=== PATIENT | female | born 1945 | race Caucasian/White ===

== ENCOUNTER 2017-11-27 09:19 | Outpatient (CLI) | payer OTHER ==
[~2017-11-27 09:19] MED LIST: ANASTROZOLE1 GM; MICARDIS80 MG
== END 2017-11-27 10:12 | disposition home or self-care (01) ==
LOC: SONOGRAMA 09:19
DX: R10.84 Generalized abdominal pain (principal); N95.1 Menopausal and female climacteric states

== ENCOUNTER 2018-01-14 07:53 | Outpatient (CLI) | payer OTHER | END 2018-01-14 08:07 | disposition home or self-care (01) | LOC: NUCLEAR 07:53 | DX: R10.11 Right upper quadrant pain (principal) | CPT/HCPCS: 78227; A9537 ==

== ENCOUNTER 2018-01-17 14:33 | Emergency (ER) | payer OTHER ==
[~2018-01-17] VITALS: Ht 147.3 cm; Wt 68.9 kg
[2018-01-17] MEDS ORDERED: CRESTOR20 MG (14:48)
[2018-01-17] MEDS ORDERED: MICARDIS HCT 41 EACH (14:48)
[2018-01-17] MEDS ORDERED: TOPROL XL50 M1 (14:48)
[2018-01-17] MEDS ORDERED: PROTONIX40 MG (14:49)
[2018-01-17] MEDS ORDERED: FOLIC ACID0.8 M1 (14:49)
[2018-01-17] MEDS ORDERED: ASA81 MG (14:49)
[2018-01-17] MEDS ORDERED: SYNTHROID50 MCG (14:49)
[2018-01-17] MEDS ORDERED: SYNTHROID75 MCG (14:49)
== END 2018-01-17 21:30 | disposition home or self-care (01) ==
LOC: ER 14:33 → CPU-OBS 15:44 → ER 21:30
DX: R07.89 Other chest pain (principal)

== ENCOUNTER 2018-02-01 09:13 | Inpatient (IN) | payer OTHER ==
[~2018-02-01] VITALS: Ht 149.9 cm; Wt 67.1 kg
[~2018-02-01 09:13] MED LIST changes: +ASA81 MG; +CRESTOR20 MG; +FOLIC ACID0.8 M1; +MICARDIS HCT 41 EACH; +PROTONIX40 MG; +SYNTHROID50 MCG; +SYNTHROID75 MCG; +TOPROL XL50 M1
[2018-02-10] MEDS ORDERED: ACETAMINOPHEN-1 EAC2 PO (12:58)
== END 2018-02-10 14:43 | disposition home or self-care (01) | DRG 683 ==
LOC: ER 09:13 → MEDJ 19:02 → SURH 19:02 → MEDJ 02-02 11:49 → MEDI 02-02 11:49 → MEDJ 02-04 10:25
PROC: BW25YZZ Computerized Tomography (CT Scan) of Chest, Abdomen and Pelvis using Other Contrast (ICD-10-PCS; 2018-02-01)
PROC: 0W9G3ZX Drainage of Peritoneal Cavity, Percutaneous Approach, Diagnostic (ICD-10-PCS; principal; 2018-02-02)
PROC: 02HV33Z Insertion of Infusion Device into Superior Vena Cava, Percutaneous Approach (ICD-10-PCS; 2018-02-02)
PROC: 4A12X4Z Monitoring of Cardiac Electrical Activity, External Approach (ICD-10-PCS; 2018-02-04)
PROC: BW25Y0Z Computerized Tomography (CT Scan) of Chest, Abdomen and Pelvis using Other Contrast, Unenhanced and Enhanced (ICD-10-PCS; 2018-02-06)
PROC: 0DB98ZX Excision of Duodenum, Via Natural or Artificial Opening Endoscopic, Diagnostic (ICD-10-PCS; 2018-02-08)
PROC: 0DB78ZX Excision of Stomach, Pylorus, Via Natural or Artificial Opening Endoscopic, Diagnostic (ICD-10-PCS; 2018-02-08)
PROC: 0DBH8ZX Excision of Cecum, Via Natural or Artificial Opening Endoscopic, Diagnostic (ICD-10-PCS; 2018-02-08)
PROC: BW30Y0Z Magnetic Resonance Imaging (MRI) of Abdomen using Other Contrast, Unenhanced and Enhanced (ICD-10-PCS; 2018-02-08)
PROC: BW3GY0Z Magnetic Resonance Imaging (MRI) of Pelvic Region using Other Contrast, Unenhanced and Enhanced (ICD-10-PCS; 2018-02-08)
PROC: 0W9G3ZX Drainage of Peritoneal Cavity, Percutaneous Approach, Diagnostic (ICD-10-PCS; 2018-02-09)
PROC: BU4CZZZ Ultrasonography of Uterus and Ovaries (ICD-10-PCS; 2018-02-09)
DX: N17.8 Other acute kidney failure (principal); R18.0 Malignant ascites; E86.0 Dehydration; K21.9 Gastro-esophageal reflux disease without esophagitis; I10 Essential (primary) hypertension; E03.8 Other specified hypothyroidism; K57.30 Diverticulosis of large intestine without perforation or abscess without bleeding; K31.7 Polyp of stomach and duodenum; C80.1 Malignant (primary) neoplasm, unspecified; D12.0 Benign neoplasm of cecum; K52.89 Other specified noninfective gastroenteritis and colitis; I25.118 Atherosclerotic heart disease of native coronary artery with other forms of angina pectoris
CPT/HCPCS: 72196; 74182

== ENCOUNTER 2018-02-14 12:52 | Outpatient (CLI) | payer OTHER | END 2018-02-14 14:01 | disposition home or self-care (01) | LOC: LAB 12:52 | DX: C48.0 Malignant neoplasm of retroperitoneum (principal); R97.8 Other abnormal tumor markers; C50.419 Malignant neoplasm of upper-outer quadrant of unspecified female breast ==

== ENCOUNTER → 2018-02-14 | Outpatient (CLI) | payer OTHER ==
[~2018-02-14] MED LIST changes: +ACETAMINOPHEN-1 EAC2 PO
== END | disposition home or self-care (01) ==
LOC: NUCLEAR 10:01
DX: C56.1 Malignant neoplasm of right ovary (principal); C56.2 Malignant neoplasm of left ovary; R18.0 Malignant ascites
CPT/HCPCS: 78815; A9552

== ENCOUNTER 2018-02-15 10:56 | Outpatient (CLI) | payer OTHER | END 2018-02-15 11:01 | disposition home or self-care (01) | LOC: LAB 10:56 | DX: R94.8 Abnormal results of function studies of other organs and systems (principal); C48.0 Malignant neoplasm of retroperitoneum ==

== ENCOUNTER 2018-08-02 09:33 | Emergency (ER) | payer OTHER ==
[~2018-08-02] VITALS: Ht 149.9 cm; Wt 59.9 kg
[2018-08-02] MEDS ORDERED: TRAMADOL HCL50 MG (10:16)
== END 2018-08-02 16:58 | disposition home or self-care (01) ==
LOC: ER 09:33
DX: R10.31 Right lower quadrant pain (principal)

== ENCOUNTER 2018-08-08 17:51 | Emergency (ER) | payer OTHER ==
[~2018-08-08] VITALS: Ht 157.5 cm; Wt 74.8 kg
[~2018-08-08 17:51] MED LIST changes: +TRAMADOL HCL50 MG
== END 2018-08-08 21:25 | disposition home or self-care (01) ==
LOC: ER 17:51
DX: R18.8 Other ascites (principal); R07.89 Other chest pain; K52.9 Noninfective gastroenteritis and colitis, unspecified; K57.90 Diverticulosis of intestine, part unspecified, without perforation or abscess without bleeding; I10 Essential (primary) hypertension; I13.10 Hypertensive heart and chronic kidney disease without heart failure, with stage 1 through stage 4 chronic kidney disease, or unspecified chronic kidney disease; N18.9 Chronic kidney disease, unspecified

== ENCOUNTER 2018-08-27 18:28 | Emergency (ER) | payer OTHER ==
[~2018-08-27] VITALS: Ht 149.9 cm; Wt 62.1 kg
== END 2018-08-27 22:31 | disposition home or self-care (01) ==
LOC: ER 18:28
DX: R18.8 Other ascites (principal)

== ENCOUNTER 2018-09-02 09:44 | Inpatient (IN) | payer OTHER ==
[~2018-09-02] VITALS: Ht 149.9 cm; Wt 57.6 kg
[2018-09-02] MEDS ORDERED: FEMARA2.5 MG (10:02)
[2018-09-02] MEDS ORDERED: VERZENIO100 MG (10:02)
== END 2018-09-05 16:01 | disposition home or self-care (01) | DRG 389 ==
LOC: ER 09:44 → MEDI 16:48
PROVIDERS: ADMIT Internal Medicine
PROC: 8E0ZXY6 Isolation (ICD-10-PCS; principal; 2018-09-02)
PROC: 3E0336Z Introduction of Nutritional Substance into Peripheral Vein, Percutaneous Approach (ICD-10-PCS; 2018-09-03)
PROC: 0DH67UZ Insertion of Feeding Device into Stomach, Via Natural or Artificial Opening (ICD-10-PCS; 2018-09-03)
PROC: BW40ZZZ Ultrasonography of Abdomen (ICD-10-PCS; 2018-09-04)
DX: K56.690 Other partial intestinal obstruction (principal); R18.8 Other ascites; E44.0 Moderate protein-calorie malnutrition; I25.810 Atherosclerosis of coronary artery bypass graft(s) without angina pectoris; N17.8 Other acute kidney failure; C78.6 Secondary malignant neoplasm of retroperitoneum and peritoneum; K57.30 Diverticulosis of large intestine without perforation or abscess without bleeding; E78.49 Other hyperlipidemia; E03.8 Other specified hypothyroidism; E86.0 Dehydration; E87.8 Other disorders of electrolyte and fluid balance, not elsewhere classified; Z98.61 Coronary angioplasty status; E83.42 Hypomagnesemia; D63.8 Anemia in other chronic diseases classified elsewhere; K74.69 Other cirrhosis of liver; I11.9 Hypertensive heart disease without heart failure; C80.1 Malignant (primary) neoplasm, unspecified

== ENCOUNTER 2018-09-18 18:56 | Emergency (ER) | payer OTHER ==
[~2018-09-18] VITALS: Ht 149.9 cm; Wt 60.8 kg
[~2018-09-18 18:56] MED LIST changes: +FEMARA2.5 MG; +VERZENIO100 MG
== END 2018-09-18 21:46 | disposition home or self-care (01) ==
LOC: ER 18:56
DX: R18.8 Other ascites (principal); C78.6 Secondary malignant neoplasm of retroperitoneum and peritoneum; R14.0 Abdominal distension (gaseous)

== ENCOUNTER 2018-10-10 18:01 | Emergency (ER) | payer OTHER ==
[~2018-10-10] VITALS: Ht 149.9 cm; Wt 62.6 kg
[2018-10-10] MEDS ORDERED: VERZENIO50 MG PO (18:12)
== END 2018-10-10 21:36 | disposition home or self-care (01) ==
LOC: ER 18:01
DX: R18.8 Other ascites (principal); C78.6 Secondary malignant neoplasm of retroperitoneum and peritoneum; K52.9 Noninfective gastroenteritis and colitis, unspecified; I10 Essential (primary) hypertension; R07.89 Other chest pain

== ENCOUNTER 2018-11-23 10:50 | Emergency (ER) | payer OTHER ==
[~2018-11-23] VITALS: Ht 149.9 cm; Wt 58.1 kg
[~2018-11-23 10:50] MED LIST changes: +VERZENIO50 MG PO
== END 2018-11-23 13:27 | disposition home or self-care (01) ==
LOC: ER 10:50
DX: C78.6 Secondary malignant neoplasm of retroperitoneum and peritoneum (principal); C18.0 Malignant neoplasm of cecum

== ENCOUNTER 2018-12-18 19:04 | Emergency (ER) | payer OTHER ==
[~2018-12-18] VITALS: Ht 149.9 cm; Wt 58.5 kg
== END 2018-12-18 21:35 | disposition home or self-care (01) ==
LOC: ER 19:04
DX: C78.6 Secondary malignant neoplasm of retroperitoneum and peritoneum (principal); R18.0 Malignant ascites; R14.0 Abdominal distension (gaseous); C79.81 Secondary malignant neoplasm of breast

== ENCOUNTER 2018-12-26 09:25 | Outpatient (CLI) | payer OTHER | END 2018-12-26 09:38 | disposition home or self-care (01) | LOC: NUCLEAR 09:25 | DX: C50.111 Malignant neoplasm of central portion of right female breast (principal); Z08 Encounter for follow-up examination after completed treatment for malignant neoplasm | CPT/HCPCS: 78815; A9552 ==

== ENCOUNTER 2019-01-02 18:41 | Emergency (ER) | payer OTHER ==
[~2019-01-02] VITALS: Ht 149.9 cm; Wt 58.1 kg
== END 2019-01-02 20:13 | disposition home or self-care (01) ==
LOC: ER 18:41
DX: C78.6 Secondary malignant neoplasm of retroperitoneum and peritoneum (principal); C79.81 Secondary malignant neoplasm of breast; C18.0 Malignant neoplasm of cecum; R18.0 Malignant ascites

== ENCOUNTER 2019-01-19 15:46 | Emergency (ER) | payer OTHER ==
[~2019-01-19] VITALS: Ht 149.9 cm; Wt 53.5 kg
[2019-01-19] MEDS ORDERED: PROTONIX40 MG PO (15:58)
== END 2019-01-19 22:34 | disposition home or self-care (01) ==
LOC: ER 15:46
DX: K29.60 Other gastritis without bleeding (principal)

== ENCOUNTER → 2019-01-20 | Emergency (ER) | payer OTHER ==
[~2019-01-20] VITALS: Ht 157.5 cm; Wt 61.2 kg
[~2019-01-20] MED LIST changes: +PROTONIX40 MG PO
== END | disposition home or self-care (01) ==
LOC: ER 17:20
DX: C78.6 Secondary malignant neoplasm of retroperitoneum and peritoneum (principal); R18.0 Malignant ascites; R18.8 Other ascites

== ENCOUNTER → 2019-02-01 10:04 | Outpatient (CLI) | payer OTHER | END | disposition home or self-care (01) | LOC: LAB 10:04 | DX: C79.81 Secondary malignant neoplasm of breast (principal); E83.42 Hypomagnesemia; C80.1 Malignant (primary) neoplasm, unspecified ==

== ENCOUNTER 2019-02-01 11:44 | Emergency (ER) | payer OTHER ==
[~2019-02-01] VITALS: Ht 149.9 cm; Wt 54.0 kg
== END 2019-02-01 17:32 | disposition home or self-care (01) ==
LOC: ER 11:44
DX: E88.09 Other disorders of plasma-protein metabolism, not elsewhere classified (principal); E83.42 Hypomagnesemia; R10.84 Generalized abdominal pain; R18.0 Malignant ascites

== ENCOUNTER 2019-02-03 15:02 | Inpatient (IN) | payer OTHER ==
[~2019-02-03] VITALS: Ht 149.9 cm; Wt 52.2 kg
== END 2019-02-05 10:20 | disposition home or self-care (01) | DRG 375 ==
LOC: OB/GYN 15:02 → SURG-SUITE 17:19
PROVIDERS: ADMIT Internal Medicine
PROC: 0W9G3ZX Drainage of Peritoneal Cavity, Percutaneous Approach, Diagnostic (ICD-10-PCS; principal; 2019-02-04)
PROC: 0DBU3ZX Excision of Omentum, Percutaneous Approach, Diagnostic (ICD-10-PCS; 2019-02-04)
DX: C78.6 Secondary malignant neoplasm of retroperitoneum and peritoneum (principal); R18.0 Malignant ascites; N17.8 Other acute kidney failure; C50.819 Malignant neoplasm of overlapping sites of unspecified female breast; I10 Essential (primary) hypertension; K57.30 Diverticulosis of large intestine without perforation or abscess without bleeding; E78.49 Other hyperlipidemia; K29.00 Acute gastritis without bleeding; E86.0 Dehydration; E87.8 Other disorders of electrolyte and fluid balance, not elsewhere classified; Z17.0 Estrogen receptor positive status [ER+]

== ENCOUNTER 2019-02-17 17:55 | Inpatient (IN) | payer OTHER ==
[~2019-02-17] VITALS: Ht 147.3 cm; Wt 53.1 kg
--- NOTE | 2019-02-17 18:07 | NUR ---
SE RECIBE PTE LA CUAL LLEGA EN AMBULAMNCIA, LA MISMA SE ENCUENTRA CON NAUSEAS Y VOMITOS LOS CUALES SON MIRTHA FAMILIAR MANUELE AVELINO Y CELESTE EN ABD.
--- NOTE | 2019-02-17 19:11 | NUR ---
SE ORIENTA PTE Y FAMILIAR SOBRE EL TRATAMIENTO ORDENADO POR EL DR DACOSTA PTE ALERTA Y CONCIENTE POR 3 SE REALIZAN MUESTRAS DE LABORATORIO PTE SE MANTIENE EN OBSERVACION Y BAJO TRATAMIENTO.
== END 2019-02-18 14:12 | disposition expired | DRG 374 ==
LOC: ER 17:55 → SURG 19:07
PROVIDERS: ADMIT Internal Medicine
PROC: 8E0ZXY6 Isolation (ICD-10-PCS; principal; 2019-02-17)
PROC: 4A12X4Z Monitoring of Cardiac Electrical Activity, External Approach (ICD-10-PCS; 2019-02-17)
PROC: 3E0336Z Introduction of Nutritional Substance into Peripheral Vein, Percutaneous Approach (ICD-10-PCS; 2019-02-18)
PROC: 0BH17EZ Insertion of Endotracheal Airway into Trachea, Via Natural or Artificial Opening (ICD-10-PCS; 2019-02-18)
PROC: 5A1935Z Respiratory Ventilation, Less than 24 Consecutive Hours (ICD-10-PCS; 2019-02-18)
DX: C78.6 Secondary malignant neoplasm of retroperitoneum and peritoneum (principal); K57.31 Diverticulosis of large intestine without perforation or abscess with bleeding; A41.9 Sepsis, unspecified organism; R18.0 Malignant ascites; N17.8 Other acute kidney failure; C78.4 Secondary malignant neoplasm of small intestine; K56.699 Other intestinal obstruction unspecified as to partial versus complete obstruction; I46.9 Cardiac arrest, cause unspecified; E86.0 Dehydration; I11.9 Hypertensive heart disease without heart failure; I25.10 Atherosclerotic heart disease of native coronary artery without angina pectoris; D72.828 Other elevated white blood cell count; D50.0 Iron deficiency anemia secondary to blood loss (chronic); C50.819 Malignant neoplasm of overlapping sites of unspecified female breast; R14.0 Abdominal distension (gaseous); E83.42 Hypomagnesemia; E78.49 Other hyperlipidemia; Z66 Do not resuscitate